=== PATIENT | female | born 1970 | race African-American/Black ===

== ENCOUNTER 2018-05-19 17:19 | Emergency (ER) | payer OTHER ==
[~2018-05-19] VITALS: Ht 167.6 cm; Wt 153.3 kg
[~2018-05-19 17:19] MED LIST: PROAIR HFA8.5 GM INH; PROZAC20 MG PO; XARELTO15 MG PO; XARELTO20 MG
[2018-05-19] MEDS ORDERED: NORCO 5-325 TA1 EACH PO (18:04)
[2018-05-19 18:35] VITALS: BP 111/61
== END 2018-05-19 18:35 | disposition home or self-care (01) ==
LOC: M.ERS 17:19
DX: I82.411 Acute embolism and thrombosis of right femoral vein (principal); I82.811 Embolism and thrombosis of superficial veins of right lower extremity